=== PATIENT | male | born 1990 | race Caucasian/White ===

== ENCOUNTER 2017-10-15 17:29 | Emergency (ER) | payer OTHER, MEDICAID ==
[2017-10-15 18:06] VITALS: BP 127/75
--- NOTE | 2017-10-15 19:05 | XRAY Report ---
EXAM: RIGHT FIRST DIGIT RADIOGRAPHY EXAM DATE: 10/15/2017 06:43 PM. CLINICAL HISTORY: Right thumb injury. COMPARISON: None. TECHNIQUE: 3 views. FINDINGS: Bones: No acute fractures or suspicious bone lesions. Joints: No subluxations. Soft Tissues: Unremarkable. IMPRESSION: No acute radiographic abnormalities. [facility] Referring Provider Line: [phone] SITE ID: [id number]
--- NOTE | 2017-10-15 19:05 | XRAY Preliminary Report ---
Exam: XR FINGER(S) RT IMPRESSION: No acute radiographic abnormalities. [facility] SITE ID: [id number]
--- NOTE | 2017-10-15 19:37 | ED Physician Documentation ---
PD HPI UPPER EXT INJURY - Stated complaint Stated Complaint: R THUB INJ - Chief complaint Chief Complaint: Ext Problem - History obtained from History obtained from: Patient - History of Present Illness Location: Right, Finger (thumb) Type of injury: Twist (closing tailgate of truck and the gate caught right thumb and bent it back and banged it. Pain at MCP.) Where injury occurred: Work Timing - onset: Today Timing - details: Abrupt onset, Still present Review of Systems Skin: denies: Abrasion (s), Laceration (s) Neurologic: denies: Focal weakness, Numbness PD PAST MEDICAL HISTORY - Past Medical History Cardiovascular: None Respiratory: None Neuro: None Endocrine/Autoimmune: None - Present Medications Home Medications: Ambulatory Orders Medication Instructions Recorded Confirmed No Known Home Medications [No 10/15/17 10/15/17 Known Home Medications] - Allergies Allergies/Adverse Reactions: Allergies Allergy/AdvReac Type Severity Reaction Status Date / Time No Known Drug Allergies Allergy Verified 10/15/17 18:06 PD ED PE NORMAL - Vitals Vital signs reviewed: Yes - General General: Alert and oriented X 3, No acute distress, Well developed/nourished - Derm Derm: Normal color, Warm and dry - Extremities Extremities: Other (right thumb with tenderness at dorsal MCP area. Not tender at UCL area. No gross laxity with stress testing. ) - Neuro Neuro: No motor deficit, No sensory deficit Results - Vitals Vitals: Oxygen O2 Source Room air - Rads (name of study) right thumb Radiology: Prelim report reviewed, EMP read contemporaneously (no fractures) PD MEDICAL DECISION MAKING - ED course Complexity details: reviewed results (xray show no fractures nor dislocation), considered differential (thumb sprain), d/w patient Departure - Departure Disposition: 01 Home, Self Care Clinical Impression: Thumb sprain Qualifiers: Encounter type: initial encounter Sprain of finger site: metacarpophalangeal joint Laterality: right Qualified Code(s): S63.641A - Sprain of metacarpophalangeal joint of right thumb, initial encounter Condition: Stable Record reviewed to determine appropriate education?: Yes Instructions: ED Sprain Finger Follow-Up: Tushar Womack MD [Provider Admit Priv/Credential] - Comments: Thumb splint to protect the thumb tonight and tomorrow and then during work or use for several days to week until it is feeling better. The splint can be off at times with gentle motion of the thumb to keep it from stiffening up. He is some naproxen or ibuprofen 3 times a day for the next few days and add Tylenol if needed for pains. Gentle use of the right hand and thumb for a few days to week until it is better. Recheck with Ortho Evra if not really improved and all better in the next week. Forms: Activity restrictions Discharge Date/Time: 10/15/17 20:10
[2017-10-15] MEDS ORDERED: ACETAMINOPHEN 325 MG TABLET PO STA (19:46)
[2017-10-15] MEDS ORDERED: IBUPROFEN 600 MG TABLET PO STA (19:46)
== END 2017-10-15 20:10 | disposition home or self-care (01) ==
LOC: ED 17:29
DX: S63.641A Sprain of metacarpophalangeal joint of right thumb, initial encounter (principal); X50.1XXA Overexertion from prolonged static or awkward postures, initial encounter; Y99.0 Civilian activity done for income or pay
CPT/HCPCS: 73140; 99282; 99283; A9270; 1040M

== ENCOUNTER 2019-03-02 11:39 | Emergency (ER) | payer MEDICAID ==
[2019-03-02 13:40] LABS: BASOPHILS # (AUTO) 0.1 10^3/uL (0.0-0.1); EOSINOPHILS # (AUTO) 0.1 10^3/uL (0.0-0.7); EOSINOPHILS % (AUTO) 1.3 %; HGB - HEMOGLOBIN 15.5 g/dL (14.0-18.0); LYMPHOCYTES # (AUTO) 1.9 10^3/uL (1.5-3.5); LYMPHOCYTES % (AUTO) 27.8 %; MEAN CORPUSCULAR HGB CONC 33.8 g/dL (32.0-36.0); MEAN CORPUSCULAR VOLUME 91.6 fL (80.0-94.0); MEAN PLATELET VOLUME 8.7 fL (7.4-11.4); MONOCYTES # (AUTO) 0.6 10^3/uL (0.0-1.0); MONOCYTES % (AUTO) 8.5 %; NEUTROPHILS # (AUTO) 4.2 10^3/uL (1.5-6.6); NEUTROPHILS % (AUTO) 61.1 %; PLT - PLATELET COUNT 226 10^3/uL (130-450); RED CELL DISTRIBUTION WIDTH 11.8 % (12.0-15.0); WHITE BLOOD COUNT 6.9 x10^3/uL (4.8-10.8)
[2019-03-02 14:06] LABS: ALBUMIN 4.8 g/dL (3.2-5.5); ALBUMIN/GLOBULIN RATIO 1.7 (1.0-2.2); BILIRUBIN,TOTAL 0.5 mg/dL (0.2-1.0); CALCIUM 9.4 mg/dL (8.5-10.3); CREATININE 0.9 mg/dL (0.6-1.2); TOTAL PROTEIN 7.7 g/dL (6.7-8.2)
--- NOTE | 2019-03-02 14:14 | XRAY Report ---
Reason: chest pain Procedure Date: 03/02/2019 Accession Number: [id number] / [id number] Procedure: XR - Chest 2 View X-Ray CPT Code: 06484 FULL RESULT: EXAM: CHEST RADIOGRAPHY EXAM DATE: 03/02/2019 01:43 PM. CLINICAL HISTORY: Chest pain. COMPARISON: None. TECHNIQUE: 2 views. FINDINGS: Lungs/Pleura: No focal opacities evident. No pleural effusion. No pneumothorax. Normal volumes. Mediastinum: Heart and mediastinal contours are unremarkable. Other: None. IMPRESSION: Negative chest. [facility]
[2019-03-02 14:55] VITALS: BP 127/78
--- NOTE | 2019-03-02 15:12 | ED Physician Documentation ---
PD HPI ABD PAIN - Stated complaint Stated Complaint: CHEST/ABD PX - Chief complaint Chief Complaint: Cardiac - History obtained from History obtained from: Patient - History of Present Illness Timing - onset: Other (A week and a half ago he lifted a garbage can. Since then he has had some migratory anterior chest and abdominal pain after eating a large meal. Is no associated vomiting, nausea, or changes in bowel movements. He had similar issues 6 months ago that resolved quickly.) Review of Systems Constitutional: denies: Fever, Chills Throat: denies: Sore throat Cardiac: denies: Palpitations, Pedal edema, Calf pain Respiratory: denies: Dyspnea, Cough, Hemoptysis, Wheezing PD PAST MEDICAL HISTORY - Past Medical History Cardiovascular: None Respiratory: None Neuro: None Endocrine/Autoimmune: None - Past Surgical History Past Surgical History: No - Present Medications Home Medications: Ambulatory Orders Medication Instructions Recorded Confirmed Omeprazole 20 mg PO DAILY #30 capsule. 03/02/19 - Allergies Allergies/Adverse Reactions: Allergies Allergy/AdvReac Type Severity Reaction Status Date / Time No Known Drug Allergies Allergy Verified 10/15/17 18:06 - Social History Does the pt smoke?: No Smoking Status: Never smoker Does the pt drink ETOH?: No Does the pt have substance abuse?: No - Immunizations Immunizations are current?: Yes - POLST Patient has POLST: No PD ED PE NORMAL - Vitals Vital signs reviewed: Yes - General General: Alert and oriented X 3, No acute distress - HEENT HEENT: PERRL, EOMI, Pharynx benign - Neck Neck: Supple, no meningeal sign, No bony TTP, No adenopathy - Cardiac Cardiac: RRR, No murmur - Respiratory Respiratory: No respiratory distress, Clear bilaterally - Abdomen Abdomen: Normal bowel sounds, Soft, Non tender - Neuro Neuro: Alert and oriented X 3, Normal speech - Psych Psych: Normal mood, Normal affect Results - Vitals Vitals: Vital Signs - 24 hr 03/02/19 03/02/19 12:18 14:55 Temperature 36.5 C Heart Rate 56 L 86 Respiratory 60 H 22 Rate Blood Pressure 111/68 127/78 O2 Saturation 99 100 Oxygen O2 Source Room air - Labs Labs: Laboratory Tests 03/02/19 03/02/19 03/02/19 13:25 13:25 13:25 WBC 6.9 RBC 5.00 Hgb 15.5 Hct 45.8 MCV 91.6 MCH 31.0 MCHC 33.8 RDW 11.8 L Plt Count 226 MPV 8.7 Neut # (Auto) 4.2 Lymph # (Auto) 1.9 Freestone # (Auto) 0.6 Eos # (Auto) 0.1 Baso # (Auto) 0.1 Absolute Nucleated RBC 0.00 Nucleated RBC % 0.0 Sodium 142 Potassium 4.1 Chloride 102 Carbon Dioxide 30 Anion Gap 10.0 BUN 13 Creatinine 0.9 Estimated GFR (MDRD) 100 Glucose 100 Calcium 9.4 Total Bilirubin 0.5 AST 20 ALT 15 Alkaline Phosphatase 57 Troponin I High Sens < 2.3 L Total Protein 7.7 Albumin 4.8 Globulin 2.9 Albumin/Globulin Ratio 1.7 Lipase 38 PD MEDICAL DECISION MAKING - ED course ED course: This is a young man with migratory lower chest and abdominal pains especially after eating. his work-up here is negative. Could be ulcer disease. He says he is already getting better. We will trial a PPI pending follow-up. Departure - Departure Disposition: 01 Home, Self Care Clinical Impression: Epigastric pain Condition: Good Record reviewed to determine appropriate education?: Yes Instructions: ED Abdominal Pain Unkn Cause Follow-Up: Indira Landaverde MD [Provider Admit Priv/Credential] - Within 1 week Prescriptions: Omeprazole 20 mg PO DAILY #30 capsule. Comments: If you continue to improve, no specific follow-up is necessary. If your symptoms linger, follow-up with the surgeon for consideration for upper endoscopy. Return for new or worsening symptoms.
== END 2019-03-02 15:21 | disposition home or self-care (01) ==
LOC: ED 11:39
DX: R10.13 Epigastric pain (principal); R07.9 Chest pain, unspecified
CPT/HCPCS: 36415; 71046; 80053; 83690; 84484; 85025; 93005; 99283; 99284